=== PATIENT | female | born 1995 | race Caucasian/White ===

== ENCOUNTER 2019-03-14 18:42 | Emergency (ER) | payer BC ==
--- NOTE | 2019-03-14 19:15 | EDM.PDOC ---
ED HPI GENERAL MEDICAL PROBLEM - General Chief Complaint: Skin Complaint Stated Complaint: RIGHT THUMB INJURY Time Seen by Provider: 03/14/19 19:03 Source of Information: Reports: Patient History Limitations: Reports: No Limitations - History of Present Illness INITIAL COMMENTS - FREE TEXT/NARRATIVE: HISTORY AND PHYSICAL: History of present illness: Patient is a 23-year-old female who presents to the emergency room today with complaints of a possible infection near the base of her right thumb. She states approximately 2 weeks ago she had a sliver at the area and believes she had gotten the splinter out. Shortly after she developed some redness and discoloration in the corner of the nail bed. Patient denies any injury/trauma to the affected extremity. Fever, chills, chest pain, shortness of breath or cough. Denies any GI or symptoms. Review of systems: As per history of present illness and below otherwise all systems reviewed and negative. Past medical history: As per history of present illness and as reviewed below otherwise noncontributory. Surgical history: As per history of present illness and as reviewed below otherwise noncontributory. Social history: See social history for further information Family history: As per history of present illness and as reviewed below otherwise noncontributory. Physical exam: General: Well-developed and well-nourished 23-year-old female. Alert and oriented. Nontoxic appearing and in no acute distress. HEENT: Atraumatic, normocephalic, pupils equal and reactive bilaterally, negative for conjunctival pallor or scleral icterus, mucous membranes moist, nontender, trachea midline. No drooling or trismus noted. No meningeal signs. No hot potato voice noted. Lungs: Clear to auscultation, breath sounds equal bilaterally. Heart: S1S2, regular rate and rhythm without overt murmur Abdomen: Soft, nondistended, nontender. Negative for masses or costovertebral tenderness. Pelvis: Stable nontender. Skin: Paronychia noted to the right medial corner of thumbnail. Skin is intact , warm, dry. No lesions or rashes noted. Extremities: Atraumatic, moves all extremities per self without difficulty or deficits. Neurovascular unremarkable. Neuro: Awake, alert, oriented. Cranial nerves II through XII unremarkable. Cerebellum unremarkable. Motor and sensory unremarkable throughout. Exam nonfocal. Notes: Attempted an I&D was unable to express any drainage from the area. Supportive care measures were reviewed and discussed. Voices understanding and is agreeable to plan of care. Denies any further questions or concerns at this time. Diagnostics: None Therapeutics: None Prescription: Keflex, Mupirocin Impression: Paronychia Plan: 1. Take the Keflex 3 times daily for the next 7 days. Warm Epson salt soaks. Apply the mupirocin 2-3 times daily 2. Tylenol and/or ibuprofen as needed for pain management. 3. Follow-up with your primary care provider as we discussed. Return to the ED as needed and as discussed. Definitive disposition and diagnosis as appropriate pending reevaluation and review of above. Right thumb Pain Score (Numeric/FACES): 5 - Related Data Allergies Allergy/AdvReac Type Severity Reaction Status Date / Time Sulfa (Sulfonamide Allergy Rash Verified 03/14/19 18:51 Antibiotics) Home Meds: Home Meds Cephalexin [Keflex] 500 mg PO TID 5 Days #15 capsule 03/14/19 [Rx] Mupirocin Cream [Bactroban Crm] 1 applic TOP TID 5 Days #1 tube 03/14/19 [Rx] Past Medical History - Past Health History Medical/Surgical History: Denies Medical/Surgical History - Infectious Disease History Infectious Disease History: Reports: None Social & Family History - Family History Family Medical History: Noncontributory - Tobacco Use Smoking Status *Q: Never Smoker Second Hand Smoke Exposure: No - Caffeine Use Caffeine Use: Reports: Coffee - Recreational Drug Use Recreational Drug Use: No ED ROS GENERAL - Review of Systems Review Of Systems: Comprehensive ROS is negative, except as noted in HPI. ED EXAM, SKIN/RASH Exam: See Below (See dictation) Course - Vital Signs Last Recorded V/S: Last Vital Signs Temp 97.5 F 03/14/19 19:15 Pulse 92 03/14/19 19:15 Resp 18 03/14/19 19:15 BP 128/72 03/14/19 19:15 Pulse Ox 95 03/14/19 19:15 Departure - Departure Time of Disposition: 19:14 Disposition: Home, Self-Care 01 Clinical Impression: Paronychia - Discharge Information Prescriptions: Cephalexin [Keflex] 500 mg PO TID 5 Days #15 capsule Mupirocin Cream [Bactroban Crm] 1 applic TOP TID 5 Days #1 tube Instructions: Evonne, [id number] Referrals: PCP,None [Primary Care Provider] - Forms: ED Department Discharge Additional Instructions: The following information is given to patients seen in the emergency department who are being discharged to home. This information is to outline your options for follow-up care. We provide all patients seen in our emergency department with a follow-up referral. The need for follow-up, as well as the timing and circumstances, are variable depending upon the specifics of your emergency department visit. If you don't have a primary care physician on staff, we will provide you with a referral. We always advise you to contact your personal physician following an emergency department visit to inform them of the circumstance of the visit and for follow-up with them and/or the need for any referrals to a consulting specialist. The emergency department will also refer you to a specialist when appropriate. This referral assures that you have the opportunity for follow-up care with a specialist. All of these measure are taken in an effort to provide you with optimal care, which includes your follow-up. Under all circumstances we always encourage you to contact your private physician who remains a resource for coordinating your care. When calling for follow-up care, please make the office aware that this follow-up is from your recent emergency room visit. If for any reason you are refused follow-up, please contact the [facility] Emergency Department at and asked to speak to the emergency department charge nurse. [facility] Primary [facility] [address] [place] [id number] [id number] 1. Take the Keflex 3 times daily for the next 7 days. Warm Epson salt soaks. Apply the mupirocin 2-3 times daily 2. Tylenol and/or ibuprofen as needed for pain management. 3. Follow-up with your primary care provider as we discussed. Return to the ED as needed and as discussed. Sepsis Event Note - Evaluation Sepsis Screening Result: No Definite Risk - Focused Exam Vital Signs: Vital Signs Temp Pulse Resp BP Pulse Ox 03/14/19 19:15 97.5 F 92 18 128/72 95 03/14/19 18:52 97.6 F 95 18 144/75 H 100 Date Exam was Performed: 03/14/19 Time Exam was Performed: 20:57
== END 2019-03-14 19:15 | disposition home or self-care (01) ==
LOC: MW.ED 18:42
DX: L03.011 Cellulitis of right finger (principal); Z88.2 Allergy status to sulfonamides
CPT/HCPCS: 99283

== ENCOUNTER 2021-08-17 17:24 | Emergency (ER) | payer SELFPAY ==
[2021-08-17] MEDS ORDERED: Sodium Chloride 0.9% 1,000 ML IV ONE (18:03)
[2021-08-17] MEDS ORDERED: Sodium Chloride 0.9% 10 ML Syringe FLUSH PRN (18:03)
[2021-08-17] MEDS ORDERED: Sodium Chloride 0.9% 2.5 ML Syringe FLUSH PRN (18:03)
[2021-08-17] MEDS ORDERED: Acetaminophen 500 MG Tab PO ONE (18:33)
[2021-08-17] MEDS ORDERED: Ketorolac 30 MG/ML SDV IVPUSH ONE (18:56)
[2021-08-17 19:07] LABS: BLOOD UREA NITROGEN,BUN 11 mg/dL (7.0-18.0); CARBON DIOXIDE,CO2 23.3 mmol/L (21.0-32.0); CHLORIDE,CL 101 mmol/L (98-107); GLUCOSE RANDOM 99 mg/dL (74-106); POTASSIUM,K 3.5 mmol/L (3.5-5.1); SODIUM,NA 135 mmol/L (136-145)
[2021-08-17] MEDS ORDERED: Sodium Chloride 0.9% 500 ML IV SCH (19:30)
[2021-08-17] MEDS ORDERED: Iopamidol 755 MG/ML 500 ML Multipack Bottle IVPUSH STA (20:01)
[2021-08-17 20:42] LABS: CORONAVIRUS COVID-19 NAA POSITIVE (NEGATIVE); INFLUENZA A NAA NEGATIVE (NEGATIVE); INFLUENZA B NAA NEGATIVE (NEGATIVE)
== END 2021-08-17 21:20 | disposition home or self-care (01) ==
LOC: MW.ED 17:24
DX: U07.1 COVID-19 (principal); Z88.2 Allergy status to sulfonamides
CPT/HCPCS: 0240U; 36415; 71275; 80053; 84484; 84703; 85025; 85379; 93005; 96361; 96374; 99285; A9270; J1885; J3490; J7030; J7040; Q9967